=== PATIENT | female | born 1990 | race Caucasian/White ===

== ENCOUNTER 2019-12-24 10:16 | Emergency (ER) | payer BC ==
[~2019-12-24] VITALS: Ht 175.3 cm; Wt 84.5 kg
[2019-12-24] MEDS ORDERED: ULTRAM 50MG TAB50 MG PO (12:49)
[2019-12-24] MEDS ORDERED: NAPROSYN500 MG PO (12:49)
[2019-12-24] MEDS ORDERED: NORFLEX100 MG PO (12:49)
[2019-12-24] MEDS ORDERED: SENNA-DOCUSATE1 EAC1 PO (14:33)
[2019-12-24] MEDS ORDERED: NORCO 5-325 TA1 EAC1 PO (14:33)
[2019-12-24 14:52] VITALS: BP 113/72
== END 2019-12-24 14:59 | disposition home or self-care (01) ==
LOC: ER 10:16
DX: S39.012A Strain of muscle, fascia and tendon of lower back, initial encounter (principal); G89.29 Other chronic pain; X58.XXXA Exposure to other specified factors, initial encounter; Y93.89 Activity, other specified; Y92.89 Other specified places as the place of occurrence of the external cause; Y99.9 Unspecified external cause status